=== PATIENT | female | born 1985 | race Caucasian/White ===

== ENCOUNTER → 2017-07-16 | Outpatient (CLI) | payer OTHER ==
[~2017-07-16] MED LIST: ATOR40TA70 PO; AZTH250C PO; CETI10CA PO; GEMF600T3 PO; HYDR1TAB PO; LISI1TAB6 PO; MNTL10T PO; NS.65NA45; OTC COLD MED; RIZA10TA23 PO
--- NOTE | 2017-07-16 14:11 | Diagnostic Imaging Report ---
Renal ultrasound. INDICATION: Left renal lesion seen on CT scan. FINDINGS: The right kidney is 10 cm and the left kidney is 11.8 cm in length. In the left kidney, there is a 2.6 x 2.3 x 2.3 cm hypoechoic lesion with increased through-transmission suggestive of a cyst. There is a hyperechoic component without obvious shadowing which may relate to internal debris or calcifications. There is no hydronephrosis. IMPRESSION: 2.6 cm lesion in the left kidney is likely a complicated cyst with internal hyperechoic component which may relate to calcification or focal hemorrhagic debris. Six-month follow-up renal ultrasound or renal protocol CT scan is recommended to ensure stability. Dictated by: Dictated on workstation # [id number]
== END ==
LOC: RAD 11:46
PROVIDERS: ATTEND Nurse Practitioner Family
DX: G44.52 New daily persistent headache (NDPH); N28.9 Disorder of kidney and ureter, unspecified
CPT/HCPCS: 76770